=== PATIENT | female | born 1995 | race Hispanic/Latino ===

== ENCOUNTER 2017-03-11 21:44 | Inpatient (IN) ==
[2017-03-11 22:48] LABS: URINE SOURCE CLEAN CATCH
[2017-03-11 22:52] LABS: BILIRUBIN URINE NEGATIVE (NEGATIVE); BLOOD URINE MODERATE (NEGATIVE); COLOR YELLOW; GLUCOSE URINE NEGATIVE (NEGATIVE); LEUKOCYTES URINE LARGE (NEGATIVE); NITRITE URINE NEGATIVE (NEGATIVE); PH URINE 6.5; PROTEIN URINE 100 mg/dL (NEGATIVE); SP GRAVITY URINE 1.014; TURBIDITY URINE HAZY (CLEAR); URINE MICRO REVIEW NEEDED? YES; UROBILINOGEN URINE NORMAL (NORMAL)
[2017-03-11 22:56] LABS: BASO% 0.1 % (0.0-0.8); EOS# 0.01 X1000 (0.0-0.7); EOS% 0.1 % (0.0-10.0); HEMATOCRIT 40.2 % (37.0-47.0); HEMOGLOBIN 13.6 g/dL (12.0-16.0); IMM GRAN# 0.05 X1000 (0.0-0.04); IMM GRAN% 0.3 % (0.0-0.5); LYMPH# 1.22 X1000 (1.2-3.4); LYMPH% 6.5 % (20.5-51.1); MANUAL DIFF NEEDED? NO; MCH 28.6 PG (27-31); MCHC 33.8 g/dL (33-37); MCV 84.6 FL (81-99); MONO# 0.81 X1000 (0.11-0.59); MONO% 4.3 % (1.7-9.3); NEUT% 88.7 % (42.2-75.2); PLT 206 X1000 (130-400); RBC 4.75 XMIL (4.2-5.4)
[2017-03-11 22:56] LABS: UR EPITHELIAL CELLS <10 /HPF (<10); URINE BACTERIA 2+ /HPF; URINE CULTURE NEEDED? YES; URINE WBC TNTC /HPF (<10)
[2017-03-11 23:04] LABS: INR 1.16; PROTIME 12.3 Seconds (9.2-11.7); PTT 28.3 Seconds (22.0-36.0)
[2017-03-11 23:07] LABS: AGAP 15; ALBUMIN 4.5 g/dL (3.5-5.0); ALKALINE PHOSPHATASE 65 U/L (32-104); BUN 10 mg/dL (8-22); CALCIUM 9.2 mg/dL (8.8-10.2); CHLORIDE 95 mmol/L (98-107); CK PROFILE 81 U/L (24-173); COSMO 269; GOT 15 U/L (10-30); GPT 11 U/L (10-36); POTASSIUM 3.6 mmol/L (3.5-5.1); SODIUM 135 mmol/L (136-145); TCO2 25 mmol/L (25-35); TOTAL BILIRUBIN 0.86 mg/dL (0.20-1.00); TOTAL PROTEIN 7.7 g/dL (6.3-8.3)
--- NOTE | 2017-03-11 23:17 | PROVIDER DOCUMENTATION ---
HPI-Fever - General Chief Complaint: Possible Sepsis-D Stated Complaint: "KIDNEY STONE" Time Seen by Provider: 03/11/17 23:50 Source: patient Allergies/Adverse Reactions: Patient Allergies Allergy/AdvReac Type Severity Reaction Status Date / Time No Known Allergies Allergy Verified 03/11/17 21:56 Home Medications: Home Medication List Medication Instructions Recorded Confirmed Last Taken Type Ketorolac [Toradol] 10 mg PO Q6H PRN PRN 03/11/17 03/11/17 03/11/17 09:00 History Sulfamethoxazole/Trimethoprim 1 each PO BID 03/11/17 03/11/17 03/11/17 09:00 History [Bactrim Ds Tablet] - History of Present Illness-Fever Nature of Presenting Problem: 21 YO female presents with lower back pain, hematuria, fever and tachycardia. Was seen at [place] this morning, dx'd with a UTI/Kidney stone and started on Bactrim. Has had two doses so far, but pain is increasing and fever spiked today so came back to the ED. Having some nausea without vomiting. No hx of stones in the past. Fever Severity/Quality: reports: greater than 102 F Onset/Duration: reports: 24 hours ago Timing: reports: still present Severity: reports: moderate Context: reports: none Recent Illness?: reports: UTI Fever Therapy CARDIAC SURGEON: Initiated Ibuprofen, Initiated prescription medications Cognitive Baseline: alert, oriented x3 Modifying Factors: improves with: analgesics, rest Associated Symptoms: reports: back/neck pain, diaphoresis, fever/chills, genitourinary problems, nausea, weakness. denies: anxiety, arm pain, chest pain , constipation, cough, diarrhea, dizziness, EENT symptoms, fatigue, headaches, muscle aches, sinus congestion/drainage, rash, syncope, vomiting Similar Symptoms Previously?: No Recently seen or treated by another doctor?: Yes - Glascow Coma Score Best Eye Response ([place]): (4) open spontaneously Best Verbal Response ([place]): (5) oriented Best Motor Response ([place]): (6) obeys commands Review of Systems - Adult - REVIEW OF SYSTEMS - ADULT Constitutional: reports: chills, fever Eyes: denies: decreased vision, blurred vision, double vision Ears, Nose, Mouth & Throat: denies: ear pain, epistaxis, throat pain Cardiovascular: denies: chest pain, syncope Respiratory: denies: cough, shortness of breath, wheezing Gastrointestinal: reports: abdominal pain, nausea. denies: diarrhea, rectal bleeding, vomiting Genitourinary: reports: dysuria, flank pain, hematuria. denies: discharge Musculoskeletal: reports: back pain. denies: bone pain, joint pain, joint swelling, muscle weakness, neck pain Integumentary: denies: itching, rash Neurological: denies: dizziness/vertigo, headache/migraines Past History - Adult - PAST MEDICAL HISTORY-ADULT Review of Records: reports: Nursing Assessment Review, Medications Reviewed Physical Exam-General - PHYSICAL EXAM-ADULT Initial Vital Signs Reviewed: Yes (tachycardic and febrile) - CONSTITUTIONAL General Appearance: alert, moderate distress - EYES Eyes: PERRL/EOMI, pink conjunctivae. negative: sclera injected, scleral icterus - HEAD, EARS, NOSE, MOUTH & THROAT HENMT: normocephalic/atraumatic, moist mucous membranes, pharynx normal. negative: dental decay, hearing deficit, pharyngeal erythema, tonsillar exudate - NECK Neck: full range of motion, supple, normal inspection - RESPIRATORY Respiratory: chest non-tender, lungs clear, normal breath sounds, no pleuratic chest pain, no respiratory distress, no accessory muscle use. negative: crackles, rales, rhonchi, stridor, wheezing - CARDIOVASCULAR Cardiovascular: normal peripheral pulses, no edema, no gallop, no JVD, no murmur , tachycardia - GASTROINTESTINAL (ABDOMEN) Abdominal Exam: soft, tenderness. negative: non tender (suprapubic tenderness) , distended, guarding, rigid, rebound - MUSCULOSKELETAL Back Exam: normal inspection, CVA tenderness. negative: no CVA tenderness, ecchymosis Extremity: non-tender, normal inspection, no pedal edema, no calf tenderness. negative: deformity, erythema, inflammation, joint effusion Peripheral Pulses: dorsalis-pedis (R): 2+, dorsalis-pedis (L): 2+ - SKIN Integumentary: normal color, warm/dry. negative: swelling - NEUROLOGIC Neurologic: penetration tester II-XII nml as tested, grossly normal - PSYCHIATRIC Psych/Mental Status: normal mood/affect, normal thought content, normal thought process Progress - PLAN OF CARE/RESULTS Progress/Plan/Lab Results: Vital Signs - 8 hr 03/11/17 21:50 Temperature 102.6 F H Pulse Rate 139 H Blood Pressure 112/80 O2 Sat by Pulse Oximetry 100 Bedside Urine ED: Urine Bedside Start: 03/11/17 22:12 Freq: ORDERED Status: Complete Activity Type Activity Date Activity User E-Sign Co-Sign Detail Recorded Client Recorded Date Recorded By Document 03/11/17 22:27 [id number] 03/11/17 22:29 [id number] Edit Status 03/12/17 00:35 ELOISA Active=>Complete [id number] 03/12/17 00:35 [id number] 03/11/17 22:27 Point of Care [Bedside Point of Care] -Lot # [id number] - Results Negative -Control Line Visible? Yes Laboratory Results - last 24 hr 03/11/17 03/11/17 03/11/17 22:00 22:15 22:15 WBC 18.75 H RBC 4.75 Hgb 13.6 Hct 40.2 MCV 84.6 MCH 28.6 MCHC 33.8 RDW Std Deviation 13.4 Plt Count 206 MPV 10.0 Immature Gran % (Auto) 0.3 Neut % (Auto) 88.7 H Lymph % (Auto) 6.5 L [place] % (Auto) 4.3 Eos % (Auto) 0.1 Baso % (Auto) 0.1 Immature Gran # (Auto) 0.05 H Neut # (Auto) 16.64 H Lymph # (Auto) 1.22 [place] # (Auto) 0.81 H Eos # (Auto) 0.01 Baso # (Auto) 0.02 PT INR PTT (Actin FS) Sodium 135 L Potassium 3.6 Chloride 95 L Carbon Dioxide 25 Anion Gap 15 BUN 10 Creatinine 0.9 Estimated GFR/1.73 m2 > 60 BUN/Creatinine Ratio 11 Glucose 102 Calculated Osmolality 269 Calcium 9.2 Total Bilirubin 0.86 AST 15 ALT 11 Alkaline Phosphatase 65 Creatine Kinase 81 Troponin T Total Protein 7.7 Albumin 4.5 Globulin 3.2 Albumin/Globulin Ratio 1.4 Plasma Lactate Urine Source CLEAN CATCH Urine Color YELLOW Urine Turbidity HAZY Urine pH 6.5 Ur Specific [place] 1.014 Urine Protein 100 A Ur Glucose (Stick) NEGATIVE Ur Ketones (Stick) TRACE A Urine Blood MODERATE A Urine Nitrite NEGATIVE Urine Bilirubin NEGATIVE Urobilinogen Dipstick NORMAL Urine Leukocytes LARGE A Urine WBC (Auto) TNTC A Urine RBC (Auto) 10-20 A U Epithel Cells (Auto) <10 Urine Bacteria (Auto) 2+ Urine Crystals Not Reportable Small Round Cells Not Reportable Urine Casts Not Reportable Urine Yeast-like Cells NONE SEEN 03/11/17 03/11/17 03/11/17 22:15 22:15 22:15 WBC RBC Hgb Hct MCV MCH MCHC RDW Std Deviation Plt Count MPV Immature Gran % (Auto) Neut % (Auto) Lymph % (Auto) [place] % (Auto) Eos % (Auto) Baso % (Auto) Immature Gran # (Auto) Neut # (Auto) Lymph # (Auto) [place] # (Auto) Eos # (Auto) Baso # (Auto) PT 12.3 H INR 1.16 PTT (Actin FS) 28.3 Sodium Potassium Chloride Carbon Dioxide Anion Gap BUN Creatinine Estimated GFR/1.73 m2 BUN/Creatinine Ratio Glucose Calculated Osmolality Calcium Total Bilirubin AST ALT Alkaline Phosphatase Creatine Kinase Troponin T < 0.010 Total Protein Albumin Globulin Albumin/Globulin Ratio Plasma Lactate 1.9 Urine Source Urine Color Urine Turbidity Urine pH Ur Specific [place] Urine Protein Ur Glucose (Stick) Ur Ketones (Stick) Urine Blood Urine Nitrite Urine Bilirubin Urobilinogen Dipstick Urine Leukocytes Urine WBC (Auto) Urine RBC (Auto) U Epithel Cells (Auto) Urine Bacteria (Auto) Urine Crystals Small Round Cells Urine Casts Urine Yeast-like Cells Orders Category Date Time Status Admit - [facility] Routine [id number] 03/12/17 00:35 Ordered Activity - Up with Assistance ORDERED Care 03/12/17 00:35 Active Apply Mechanical Device [QM] ORDERED Care 03/12/17 00:35 Active Cardiac Monitoring DIRECTED Care 03/11/17 22:10 Completed ED: Urine Bedside ORDERED Care 03/11/17 22:12 Completed IV Insertion ORDERED Care 03/11/17 22:10 Inactive Intake and Output-Strict ORDERED Care 03/12/17 00:35 Active Medical Records [Old records/chart to unit] .From other Care 03/12/17 00:22 Active facility Notify MD of + Sepsis Screen NOW Care 03/11/17 22:10 Inactive Nursing- MD Consult Request ROUTINE Care 03/12/17 00:35 Active Vital Signs Order Q 6-HR ASSESS Care 03/12/17 00:35 Active Physician/Provider Consults Routine Cons 03/12/17 08:00 Ordered Regular Diet Diet 03/12/17 00:00 Active BASIC METABOLIC PANEL [CHEM] DAILY Lab 03/13/17 06:00 Ordered BASIC METABOLIC PANEL [CHEM] DAILY Lab 03/14/17 06:00 Ordered BASIC METABOLIC PANEL [CHEM] DAILY Lab 03/15/17 06:00 Ordered BLOOD CULTURE [BLDCUL] Stat Lab 03/11/17 22:15 Results CBC WITH DIFF [HEME] DAILY Lab 03/13/17 06:00 Ordered CBC WITH DIFF [HEME] DAILY Lab 03/14/17 06:00 Ordered CBC WITH DIFF [HEME] DAILY Lab 03/15/17 06:00 Ordered CBC WITH DIFF [HEME] Stat Lab 03/11/17 22:15 Completed CK PROFILE [SP CHEM] Stat Lab 03/11/17 22:15 Completed COMPREHENSIVE METABOLIC PANEL [CHEM] Stat Lab 03/11/17 22:15 Completed LACTATE, PLASMA [CHEM] Stat Lab 03/11/17 22:15 Completed PROTIME WITH INR [COAG] Stat Lab 03/11/17 22:15 Completed PTT [COAG] Stat Lab 03/11/17 22:15 Completed TROPONIN T Stat Lab 03/11/17 22:15 Completed URINALYSIS W/POSS RFLX CULT-1 [URINALYSIS] Stat Lab 03/11/17 22:00 Completed URINE CULTURE [RM] Routine Lab 03/11/17 22:57 Received URINE MANUAL MICROSCOPIC [URINALYSIS] Stat Lab 03/11/17 22:00 Completed 0.9% Sodium Chloride Inj [Ns] 1,000 ml Med 03/12/17 00:35 Active IV 150 mls/hr 0.9% Sodium Chloride Inj [Ns] 1,000 ml Med 03/11/17 23:21 Discontinued IV 999 mls/hr 0.9% Sodium Chloride Inj [Ns] 1,000 ml Med 03/12/17 00:35 Discontinued IV 999 mls/hr Acetaminophen [Ofirmev 1000 mg/Isotonic Soln] Med 03/12/17 00:35 Active 1,000 mg in 100 ml IV Q6H Acetaminophen [Tylenol] Med 03/11/17 23:46 Discontinued 650 mg PO NOW ONE CefTRIAXONE 2 GM/NS [Rocephin 2 gm/Ns] Med 03/12/17 00:35 Active 2 gm in 50 ml IV Q24H Ketorolac [Toradol] Med 03/12/17 00:35 Active 30 mg IV Q6H Morphine Med 03/12/17 00:35 Active 2 mg IV Q3H PRN PRN Morphine Med 03/11/17 23:46 Discontinued 4 mg IV NOW ONE Omeprazole [Prilosec] Med 03/12/17 07:00 Active 40 mg PO DAILY@0700 Ondansetron [Zofran] Med 03/12/17 00:35 Active 4 mg IV Q4H PRN PRN Ondansetron [Zofran] Med 03/11/17 23:46 Discontinued 8 mg IV NOW ONE Piperacil/Tazobact 3.375 gm/Ns [Zosyn 3.375 gm/Ns] Med 03/11/17 23:21 Discontinued 3.375 gm in 50 ml IV NOW Vancomycin 1 gm/Ns Med 03/11/17 23:21 Discontinued 1 gm in 250 ml IV NOW Transfer/Admit Order [TRANSFER] Routine Transfer 03/11/17 23:58 Completed Result Diagrams: 03/11/17 22:15 03/11/17 22:15 - REASSESSMENT Reassessment #1 Time Reassessed: 23:51 (Started sepsis treatment. Discussed wt pt and with Dr. Ross. Will call for admit. ) - CT/MRI 1 CT Study: Abdomen, Pelvis Impression: Abnormal (CT From [place] today: Right hydroureternephrosis, punctate calfific density that may be in distal ureter or could be a small phlebolith. No calculus in the bladder. Left kidney: punctate intracalyceal calculus. No other abnormalities. Dr. Jorge Britt) - CONSULTS/PCP/HOSPITALIST Notification #1 *Consult/PCP/Hospitalist*: Dr. George, Hospitalist Time Discussed: 23:58 (Will see pt in ED for admit) Consult Disposition: Will see in ED Departure - Departure Date of Disposition Decision: 03/11/17 Time of Disposition Decision: 23:58 DIAGNOSIS: Renal stone Sepsis Qualifiers: Sepsis type: sepsis due to unspecified organism Qualified Code(s): A41.9 - Sepsis, unspecified organism UTI (urinary tract infection) Qualifiers: Urinary tract infection type: site unspecified Hematuria presence: with hematuria Qualified Code(s): N39.0 - Urinary tract infection, site not specified ; R31.9 - Hematuria, unspecified Disposition: ADMITTED INPATIENT 09 Certified Medical Emergency: Emergent Condition: Stable - Critical Care Note This patient required my direct & personal management of CC.: No Attestation - Physician/ ELOISA Attestation Patient care was provided by Advanced Practice Provider:: Yes Advanced Practice Provider:: Quirino Adames Advanced Practice Provider documentation review:: The Mid-level provider documentation, treatment plan and medical decision making was reviewed by the physician who agrees with all treatment and medical decision making by the MLP.
[2017-03-11] MEDS ORDERED: VANCOMYCIN 1 GM/NS 1 GM/250 ML IVPB IV ONE (23:21)
[2017-03-11] MEDS ORDERED: NS 1,000 ML IV ONE (23:21)
[2017-03-11] MEDS ORDERED: ZOSYN 3.375 GM/NS 3.375 GM/50 ML IVPB IV ONE (23:21)
[2017-03-11] MEDS ORDERED: ZOFRAN IV ONE (23:46)
[2017-03-11] MEDS ORDERED: TYLENOL PO ONE (23:46)
[2017-03-11] MEDS ORDERED: MORPHINE IV ONE (23:46)
[2017-03-12] MEDS ORDERED: NS 1,000 ML IV ONE (00:35)
[2017-03-12] MEDS ORDERED: MORPHINE IV PRN (00:35)
[2017-03-12] MEDS: OFIRMEV 1000 MG/ISOTONIC SOLN 1,000 MG/100 ML BOTTLE IV SCH ×6 (01:22→23:34)
[2017-03-12] MEDS: TORADOL IV SCH ×6 (01:23→23:34)
[2017-03-12] MEDS ORDERED: BENADRYL PO PRN (02:33)
[2017-03-12] MEDS: NS 1,000 ML IV SCH ×4 (02:43→23:39)
[2017-03-12] MEDS: ROCEPHIN 2 GM/NS 2 GM/50 ML IVPB IV SCH (02:43)
--- NOTE | 2017-03-12 03:38 | HISTORY AND PHYSICAL ---
CHIEF COMPLAINT: Abdominal pain. HISTORY OF PRESENT ILLNESS: This is a 21-year-old female with unremarkable past medical history, who presented to the emergency department complaining of lower back pain, hematuria, and fever. Patient reports that she was she started having those symptoms this morning, so she went to [facility] ER, where she was diagnosed with UTI and kidney stone. She was started on Bactrim. She had 2 doses of that medication, but the pain is getting worse, and she started spiking a fever today, so she presented to the emergency department. Here, she was evaluated and the white cell count was 18,000. The CT of the abdomen and pelvis, which the final report is not available yet, apparently described a kidney stone with hydronephrosis. So at this time, we are going to admit this patient to the hospital, consult Urology, start IV antibiotics. PAST MEDICAL HISTORY: Unremarkable. PAST SURGICAL HISTORY: Unremarkable, although the patient reports that she was in [facility] for abdominal pain, and she had an upper endoscopy, colonoscopy, and also cystoscopy for severe abdominal pain. ALLERGIES: Patient is not allergic to anything. REVIEW OF SYSTEMS: Eleven systems were reviewed and all symptoms are related to H P. PHYSICAL EXAMINATION: VITAL SIGNS: Temperature 102.6 degrees, heart rate 139, blood pressure 112/80, O2 saturation 100% on room air. GENERAL: This is a 21-year-old female, lying in bed, in no acute distress. HEENT: Head is normocephalic, atraumatic. Anicteric sclerae and pale conjunctivae. Mucous membranes moist. NECK: Supple. No JVD noted. No carotid bruits. No lymphadenopathy. No thyromegaly. CARDIOVASCULAR: S1, S2 heard. No murmurs, gallops, or rubs. Regular rate and rhythm. RESPIRATORY: Clear bilaterally to auscultation. No work of breathing or using accessory muscles. ABDOMEN: Soft, nontender to palpation. Bowel sounds present. No organomegaly. Costovertebral angle tenderness is absent in both sides. NEUROLOGICAL: Patient alert and oriented x3. Moves all 4 extremities. LABORATORY DATA: White cell count 18,000, with hemoglobin 13.6, and BMP unremarkable, as well as hepatic function. Urinalysis is positive, with too numerous to count white cell count, and the urine culture of course is still pending. ASSESSMENT: 1. Right pyelonephritis. 2. Kidney stones. PLAN: 1. The patient is being admitted to the hospital because of right pyelonephritis. The patient developed fever. Urine culture and blood cultures still pending. The CT scan of the abdomen was done at [facility]. We are going to get records from there, but apparently the report shows right hydroureteronephritis. We will consult Dr. Mccoy from Urology, and we will go from there. We are going to start ceftriaxone 2 grams IV q.24 hours, IV fluids, and pain medications. 2. Further recommendations to follow according to the clinical situation of the patient. cc: Joseph Suresh MD
[2017-03-12] MEDS: PRILOSEC PO SCH ×2 (05:22→06:21)
--- NOTE | 2017-03-12 11:39 | PROGRESS NOTE ---
DATE: 03/12/2017 SUBJECTIVE: The patient is feeling a little better. She wants to go home. No fever. No chills reported. OBJECTIVE: Vital Signs: Blood pressure 95/58, pulse of 64, respirations 20, temperature 97.9 degrees, saturation 100% on room air. General Appearance: Well-developed, well-nourished white female in no acute distress. HEENT: Anicteric. Clear conjunctivae. Neck supple. No JVD. No bruit. Cardiovascular: S1, S2. Normal rate and rhythm. No murmur, rubs, or gallops. Pulmonary: Clear to auscultation bilaterally. GI: Soft, nontender, nondistended. Normoactive bowel sounds. Musculoskeletal: No clubbing, cyanosis, or edema. LABORATORY: White count 18.75, hemoglobin 13.6, hematocrit of 40.2, platelets of 206,000. Chemistry: Sodium 135, potassium 3.6, chloride 95, bicarb 25. BUN 10, creatinine 0.8, glucose of 102. ASSESSMENT AND PLAN: This is a 21-year-old white female admitted to the hospital for flank pain with significant leukocytosis and white count in her urine. Complicated urinary tract infection. We will keep the patient on ceftriaxone for now. Cultures still pending. We will continue IV fluid, p.r.n. Toradol for pain. Sequential compression devices. We will wait for culture.
[2017-03-12] MEDS: ZOFRAN IV PRN (12:54)
--- NOTE | 2017-03-12 18:34 | CONSULTATION ---
DATE OF CONSULTATION: 03/12/2017 ATTENDING AND REFERRING PHYSICIAN: Hospitalist. HISTORY OF PRESENT ILLNESS: This 21-year-old female states she developed severe right-sided pain yesterday. She states early this morning she went to the [place], where a CT scan was obtained. The patient states she was told she had a swollen kidney and had probably just passed a kidney stone. She states she was given antibiotics and pain medicine. She states she did not feel any better so came to [facility] Room to be re-evaluated. The patient was found to be febrile and have an elevated white count and a probable infected urine. She was admitted and placed on IV antibiotics. The patient states she is feeling better. She states she still has some pain but denies any hematuria. She denies any irritative voiding symptoms. She states she has had 1 urinary tract infection in her life. She has had no previous urologic surgery. She has no history of kidney stones. PAST MEDICAL HISTORY: Negative. HOME MEDICATIONS: None. PAST SURGICAL HISTORY: Negative. SOCIAL HISTORY: No tobacco or alcohol use. ALLERGIES: No known drug allergies. REVIEW OF SYSTEMS: Usually in good health. She denies any problems with heart disease, chest pains, pulmonary or bowel problems, diabetes, or hypertension. PHYSICAL EXAMINATION: General: A normally developed, well-nourished, age apparent, female oriented in all ways and cooperative. HEENT: Normal for age. Lungs: Clear. Cardiovascular: Regular rate and rhythm. Abdomen: Protuberant soft, nontender. No hepatosplenomegaly or masses. Normal bowel sounds. Back: No CVA tenderness. : Deferred until surgery if needed. Extremities: No clubbing, cyanosis, or edema. Neuro: No focal deficits. LABORATORY EVALUATION: He has a white count of 18.75, hemoglobin 13.6, hematocrit of 40.2, platelets of 206,000. Serum sodium is 135, potassium 3.6, chloride 95, BUN 10, creatinine 0.9. Urinalysis had too numerous to count white cells, 10-20 red cells per high-powered field. Urine culture is pending. IMAGING: CT scan obtained at another facility is not available at this time. Medical record states they are sending it. IMPRESSION: Febrile urinary tract infection, probable spontaneously passed right ureteral stone (based on what the patient states she was told). RECOMMEND: Treat urinary tract infection. Check culture and sensitivity reports. Check CT scan report from [place] and if equivocal will repeat CT stone search. Thank you for this consultation. cc: Lee Mccoy MD
[2017-03-13] MEDS: ROCEPHIN 2 GM/NS 2 GM/50 ML IVPB IV SCH (02:09)
[2017-03-13] MEDS: TORADOL IV SCH ×4 (05:54→21:04)
[2017-03-13] MEDS: PRILOSEC PO SCH ×2 (05:54→06:13)
[2017-03-13] MEDS: OFIRMEV 1000 MG/ISOTONIC SOLN 1,000 MG/100 ML BOTTLE IV SCH ×4 (05:54→21:02)
[2017-03-13] MEDS: NS 1,000 ML IV SCH ×4 (05:56→18:23)
[2017-03-13] MEDS: ZOFRAN IV PRN (06:21)
[2017-03-13 06:33] LABS: MANUAL DIFF NEEDED? NO
[2017-03-13 06:46] LABS: BASO% 0.1 % (0.0-0.8); EOS# 0.06 X1000 (0.0-0.7); EOS% 0.5 % (0.0-10.0); HEMATOCRIT 35.1 % (37.0-47.0); HEMOGLOBIN 11.3 g/dL (12.0-16.0); IMM GRAN# 0.02 X1000 (0.0-0.04); IMM GRAN% 0.2 % (0.0-0.5); LYMPH# 2.23 X1000 (1.2-3.4); LYMPH% 19.1 % (20.5-51.1); MCHC 32.2 g/dL (33-37); MCV 87.1 FL (81-99); MONO# 1.08 X1000 (0.11-0.59); MONO% 9.2 % (1.7-9.3); MPV 10.7 FL (7.4-10.4); NEUT% 70.9 % (42.2-75.2); PLT 150 X1000 (130-400); RBC 4.03 XMIL (4.2-5.4)
[2017-03-13 07:30] LABS: AGAP 11; BUN 8 mg/dL (8-22); CALCIUM 8.1 mg/dL (8.8-10.2); CHLORIDE 109 mmol/L (98-107); COSMO 282; POTASSIUM 4.5 mmol/L (3.5-5.1); SODIUM 142 mmol/L (136-145); TCO2 22 mmol/L (25-35)
--- NOTE | 2017-03-13 13:39 | PROGRESS NOTE ---
DATE: 03/13/2017 SUBJECTIVE: The patient is feeling well. Still having abdominal discomfort. No fever. No chills. No nausea, vomiting, or diarrhea. OBJECTIVE: Vital signs: Blood pressure 106/62, pulse of 78, respirations 14, temperature 98.5 degrees, saturation 100% room air. General appearance: Well-developed, well-nourished white female in no acute distress. HEENT: Anicteric. Clear conjunctivae. Neck: Supple. No JVD. No bruit. Cardiovascular: S1, S2. Normal rate and rhythm. No murmur, rubs, or gallops. Pulmonary: Clear to auscultation bilaterally. GI: Soft, nontender, nondistended. Normoactive bowel sounds. Musculoskeletal: No clubbing, cyanosis, or edema. LABORATORY: His white count 11.68, hemoglobin of 11.3, hematocrit of 35.1, platelets of 150,000. Chemistry. Sodium 142, potassium 4.5, chloride 109, bicarb 22, BUN 8, creatinine 0.7, glucose 101. Her urine culture grew out gram-negative sharmaine. ASSESSMENT AND PLAN: 21-year-old admitted to the hospital for flank pain. Pyelonephritis with stone. Urology is following to proceed with the cystoscopy and lithotripsy. We will continue to keep the patient on Rocephin for now. She is improving. We will continue IV fluid and pain control. Encouraged ambulation.
[2017-03-14] MEDS: TORADOL IV SCH ×2 (02:33→08:39)
[2017-03-14] MEDS: ROCEPHIN 2 GM/NS 2 GM/50 ML IVPB IV SCH (03:01)
[2017-03-14] MEDS: OFIRMEV 1000 MG/ISOTONIC SOLN 1,000 MG/100 ML BOTTLE IV SCH ×2 (03:02→08:37)
[2017-03-14] MEDS: ZOFRAN IV PRN (03:23)
[2017-03-14 06:10] LABS: MANUAL DIFF NEEDED? NO
[2017-03-14] MEDS: PRILOSEC PO SCH (06:58)
[2017-03-14 07:13] LABS: AGAP 14; BUN 4 mg/dL (8-22); CALCIUM 8.7 mg/dL (8.8-10.2); CHLORIDE 104 mmol/L (98-107); COSMO 277; SODIUM 141 mmol/L (136-145); TCO2 23 mmol/L (25-35)
[2017-03-14 07:22] LABS: BASO% 0.1 % (0.0-0.8); EOS# 0.05 X1000 (0.0-0.7); EOS% 0.6 % (0.0-10.0); HEMATOCRIT 35.1 % (37.0-47.0); HEMOGLOBIN 11.6 g/dL (12.0-16.0); LYMPH# 2.41 X1000 (1.2-3.4); LYMPH% 28.7 % (20.5-51.1); MCH 28.1 PG (27-31); MONO# 1.11 X1000 (0.11-0.59); MONO% 13.2 % (1.7-9.3); MPV 10.6 FL (7.4-10.4); NEUT% 57.4 % (42.2-75.2); PLT 196 X1000 (130-400); RBC 4.13 XMIL (4.2-5.4)
[2017-03-14 07:46] VITALS: BP 109/74
--- NOTE | 2017-03-15 04:35 | DISCHARGE SUMMARY ---
ADMISSION DATE: 03/12/2017 DISCHARGE DATE: 03/14/2017 PRIMARY CARE PHYSICIAN: She does not have one. DISCHARGE DIAGNOSES: 1. Pyelonephritis. 2. Renal stone. 3. E. Coli urinary tract infection. DISCHARGE MEDICATIONS: Levaquin 750 mg 1 tablet p.o. daily. CONSULTATIONS: Urology health consultant Dr. Mccoy saw the Patient for a cystoscopy with lithotripsy. The patient refused the procedure. HOSPITAL COURSE: The patient is a 21-year-old white female who presented to the local emergency room up in [place] for right flank pain. The CAT scan was done in the emergency room, and was found to have an enlarged kidney, suggestion that the patient may have a stone that has passed. There were no stones noticed in the ureter. The patient was admitted to our hospital for urology coverage. The patient was admitted to our service, with Gastroenterology consult. Dr. Mccoy saw the patient and offered her the procedure. The patient refused. We sent a urine culture. Her urine culture grew out Escherichia coli that is sensitive to Levaquin. The patient had been on Rocephin while she was in the hospital, had been doing well. We will discharge the patient home on Levaquin for 5 more days, and have her follow up with her PCP. PHYSICAL EXAMINATION: Vital Signs: At discharge, her vital signs were blood pressure 109/74, pulse of 87, respirations 20, temperature 98.3 degrees, saturation 100% on room air. General Appearance: Well-developed, well-nourished white female, in no acute distress. HEENT: Anicteric. Clear conjunctivae. Neck: Supple. No JVD. No bruit. Cardiovascular: S1, S2. Normal rate and rhythm. No murmur, rubs, or gallops. Pulmonary: Clear to auscultation bilaterally. Gastrointestinal: Soft, nontender, nondistended. Normoactive bowel sounds. Musculoskeletal: No clubbing, cyanosis, or edema. PLAN: We will discharge the patient home. CONDITION: Stable and improving. ACTIVITY: As tolerated. FOLLOWUP: The patient can follow up with her PCP in 5-7 days.
== END 2017-03-14 09:49 | disposition home or self-care (01) ==
LOC: ED 21:44 → 4N 03-12 00:45 → SUATTDRO 03-12 00:45
PROVIDERS: ATTEND Internal Medicine